=== PATIENT | male | born 1955 | race Caucasian/White ===

== ENCOUNTER 2021-05-21 16:05 | Emergency (ER) | payer OTHER, MEDICARE ==
[~2021-05-21] VITALS: Ht 175.3 cm; Wt 90.7 kg
[2021-05-21] MEDS ORDERED: KETOROLAC TROMETHAMINE 30 MG/ML VIAL IV STA (16:21)
[2021-05-21] MEDS ORDERED: SODIUM CHLORIDE 0.9% 1000ML 1,000 ML IV STA (16:29)
[2021-05-21] MEDS ORDERED: KETOROLAC TROMETHAMINE 30 MG/ML VIAL IV ONE (16:30)
[2021-05-21 16:41] LABS: BASOPHILS % 0.7 % (0.0-1.0); EOSINOPHILS # (AUTO) 0.1 (0.0-0.4); HEMATOCRIT 43.3 % (38.2-49.6); HEMOGLOBIN 14.8 g/dL (14.0-18.0); LYMPHOCYTES % 33.8 % (18.0-39.1); MEAN CORPUSCULAR HEMOGLOBIN 31.1 pg (28-32); MEAN CORPUSCULAR HGB CONC 34.2 g/dL (31-35); MONOCYTES # (AUTO) 0.6 (0.2-0.8); MONOCYTES % 9.9 % (4.4-11.3); NEUTROPHILS # (AUTO) 3.2 (2.1-6.9); NEUTROPHILS % 53.3 % (38.7-80.0); PLATELET COUNT 198 x10e3/uL (140-360); RED BLOOD COUNT 4.76 x10e6/uL (4.3-5.7); RED CELL DISTRIBUTION WIDTH 12.7 % (11.7-14.4)
[2021-05-21 16:46] LABS: CLARITY,URINE CLEAR (CLEAR); COLOR,URINE YELLOW (YELLOW); KETONES,URINE TRACE (NEGATIVE); LEUKOCYTE ESTERASE ,URINE NEGATIVE (NEGATIVE); NITRITE,URINE NEGATIVE (NEGATIVE); PROTEIN,URINE DIPSTICK NEGATIVE (NEGATIVE); URINE UROBILINOGEN 1 mg/dL (0.2 - 1)
[2021-05-21 16:55] LABS: ALBUMIN/GLOBULIN RATIO 1.4 (0.8-2.0); ANION GAP 13.5 mmol/L (8-16); CALCIUM 9.1 mg/dL (8.4-10.2); CREATININE, SERUM 0.88 mg/dL (0.72-1.25); POTASSIUM 3.5 mmol/L (3.5-5.1)
[2021-05-21 16:58] LABS: AMORPHOUS SEDIMENT,URINE MODERATE (FEW); BACTERIA,URINE FEW /HPF; EPITHELIAL CELLS,URINE RARE /LPF; MUCUS,URINE MODERATE (RARE); RBC,URINE 0-5 /HPF (0-5); WBC,URINE (MAN) 0-5 /HPF (0-5)
[2021-05-21] MEDS ORDERED: ONDANSETRON ODT8 MG PO (18:15)
[2021-05-21] MEDS ORDERED: FLOMAX0.4 MG PO (18:15)
== END 2021-05-21 18:47 | disposition home or self-care (01) ==
LOC: ER 16:38
DX: N20.0 Calculus of kidney (principal); N40.0 Benign prostatic hyperplasia without lower urinary tract symptoms; I10 Essential (primary) hypertension; Z88.6 Allergy status to analgesic agent; Z88.2 Allergy status to sulfonamides
CPT/HCPCS: 36415; 74176; 80053; 81001; 85025; 99284; J1885; J7030

== ENCOUNTER 2023-02-28 11:35 | Observation (INO) | payer MEDICARE, OTHER ==
[~2023-02-28] VITALS: Ht 175.3 cm; Wt 90.7 kg
[~2023-02-28 11:35] MED LIST: FLOMAX0.4 MG PO; ONDANSETRON ODT8 MG PO
[2023-02-28] MEDS ORDERED: SODIUM CHLORIDE 0.9% 1000ML 1,000 ML IV STA (11:58)
[2023-02-28 12:08] LABS: BASOPHILS % 0.7 % (0.0-1.0); EOSINOPHILS # (AUTO) 0.1 (0.0-0.4); EOSINOPHILS % 1.9 % (0.0-6.0); HEMOGLOBIN 15.1 g/dL (14.0-18.0); LYMPHOCYTES # (AUTO) 1.6 (1.0-3.2); LYMPHOCYTES % 30.3 % (18.0-39.1); MEAN CORPUSCULAR HEMOGLOBIN 31.9 pg (28-32); MEAN CORPUSCULAR HGB CONC 35.1 g/dL (31-35); MEAN CORPUSCULAR VOLUME 90.9 fL (81-99); MONOCYTES # (AUTO) 0.6 (0.2-0.8); MONOCYTES % 10.5 % (4.4-11.3); NEUTROPHILS % 56.4 % (38.7-80.0); PLATELET COUNT 182 x10e3/uL (140-360); RED BLOOD COUNT 4.73 x10e6/uL (4.3-5.7); RED CELL DISTRIBUTION WIDTH 12.5 % (11.7-14.4)
[2023-02-28 12:13] LABS: INR 0.92; PROTHROMBIN TIME 12.9 seconds (11.9-14.5)
[2023-02-28 12:23] LABS: ALANINE AMINOTRANSFERASE 18 IU/L (0-55); ALBUMIN 4.1 g/dL (3.5-5.0); ALBUMIN/GLOBULIN RATIO 1.3 (0.8-2.0); ALKALINE PHOSPHATASE 92 IU/L (40-150); ANION GAP 12.6 mmol/L (8-16); BLOOD UREA NITROGEN 11 mg/dL (7-26); BUN/CREATININE RATIO 12 (6-25); CALCIUM 9.4 mg/dL (8.4-10.2); CARBON DIOXIDE 28 mmol/L (22-29); CHLORIDE 104 mmol/L (98-107); CREATINE KINASE 64 IU/L (30-200); CREATININE, SERUM 0.93 mg/dL (0.72-1.25); GLUCOSE 100 mg/dL (74-118); MAGNESIUM 2.1 MG/DL (1.3-2.1); POTASSIUM 3.6 mmol/L (3.5-5.1); SODIUM 141 mmol/L (136-145)
[2023-02-28 12:44] LABS: THYROID STIMULATING HORMONE 0.899 uIU/mL (0.350-4.940)
[2023-02-28] MEDS ORDERED: POLYETHYLENE GLYCOL 3350 17 GM PACK PO PRN (16:45)
[2023-02-28] MEDS ORDERED: ONDANSETRON HCL INJ 2MG/ML 2ML 2 MG/ML VIAL IV PRN (16:45)
[2023-02-28 17:00] VITALS: BP 169/97; PULSE 80; RESP 18; TEMP 97.8; O2SAT 100
[2023-02-28] MEDS: DOCUSATE SODIUM 100 MG CAP PO SCH (17:00)
[2023-02-28] MEDS ORDERED: LISINOPRIL10 MG PO (17:41)
[2023-02-28] MEDS ORDERED: NEXIUM40 MG PO (17:41)
[2023-02-28] MEDS: HYDRALAZINE HCL 20 MG/ML VIAL IV PRN (17:53)
[2023-02-28] MEDS ORDERED: FLOMAX0.4 MG PO (18:22)
[2023-02-28] MEDS: ACETAMINOPHEN 325 MG TAB PO PRN (18:31)
[2023-02-28 20:00] VITALS: BP 131/88; PULSE 100; RESP 20; TEMP 98.2; O2SAT 100
[2023-02-28 20:10] VITALS: PULSE 104; RESP 18; O2SAT 100
[2023-02-28 21:00] VITALS: BP 131/88; PULSE 104; RESP 18; TEMP 98.2; O2SAT 100
[2023-02-28 22:30] LABS: CREATINE KINASE 73 IU/L (30-200)
[2023-03-01] VITALS (9 sets, daily range): BP systolic 140–152; BP diastolic 79–102; PULSE 81–101; RESP 17–20; TEMP 97.8–98.9; O2SAT 98–100
[2023-03-01] MEDS: ACETAMINOPHEN 325 MG TAB PO PRN ×2 (01:33→11:26)
[2023-03-01 05:45] LABS: BASOPHILS % 0.5 % (0.0-1.0); EOSINOPHILS % 0.5 % (0.0-6.0); HEMATOCRIT 43.8 % (38.2-49.6); HEMOGLOBIN 14.8 g/dL (14.0-18.0); LYMPHOCYTES # (AUTO) 1.6 (1.0-3.2); LYMPHOCYTES % 21.1 % (18.0-39.1); MEAN CORPUSCULAR HEMOGLOBIN 31.7 pg (28-32); MEAN CORPUSCULAR HGB CONC 33.8 g/dL (31-35); MEAN CORPUSCULAR VOLUME 93.8 fL (81-99); MONOCYTES # (AUTO) 0.7 (0.2-0.8); MONOCYTES % 8.8 % (4.4-11.3); NEUTROPHILS # (AUTO) 5.3 (2.1-6.9); NEUTROPHILS % 68.8 % (38.7-80.0); PLATELET COUNT 194 x10e3/uL (140-360); RED BLOOD COUNT 4.67 x10e6/uL (4.3-5.7); RED CELL DISTRIBUTION WIDTH 12.7 % (11.7-14.4)
[2023-03-01 06:16] LABS: ALBUMIN 3.6 g/dL (3.5-5.0); ALBUMIN/GLOBULIN RATIO 1.2 (0.8-2.0); ANION GAP 12.1 mmol/L (8-16); CALCIUM 9.3 mg/dL (8.4-10.2); CHOL/HDL RATIO 2.9 (3.9-4.7); CREATININE, SERUM 0.86 mg/dL (0.72-1.25); POTASSIUM 4.1 mmol/L (3.5-5.1)
[2023-03-01 06:46] LABS: CREATINE KINASE 63 IU/L (30-200)
[2023-03-01] MEDS ORDERED: FAMOTIDINE 20 MG TAB PO SCH (07:30)
[2023-03-01] MEDS: HYDRALAZINE HCL 20 MG/ML VIAL IV PRN (08:50)
[2023-03-01] MEDS: DOCUSATE SODIUM 100 MG CAP PO SCH ×2 (08:50→17:20)
[2023-03-01] MEDS ORDERED: ASPIRIN 81 MG ENTERIC COATED PO SCH (09:00)
[2023-03-01] MEDS ORDERED: LISINOPRIL 20 MG TAB PO ONE (11:30)
[2023-03-01] MEDS ORDERED: ONDANSETRON HCL 4 MG ORAL DISINTEGRATING TAB PO PRN (11:30)
[2023-03-01] MEDS ORDERED: TAMSULOSIN HCL 0.4 MG CAP PO ONE (11:30)
[2023-03-01 14:42] LABS: CREATINE KINASE 63 IU/L (30-200)
[2023-03-01] MEDS ORDERED: PANTOPRAZOLE SOD 40 MG TABEC PO SCH (17:00)
[2023-03-02] MEDS ORDERED: TAMSULOSIN HCL 0.4 MG CAP PO SCH (09:00)
[2023-03-02] MEDS ORDERED: LISINOPRIL 20 MG TAB PO SCH (09:00)
== END 2023-03-01 18:25 | disposition home or self-care (01) ==
LOC: ER 12:00 → ERHOLD 15:08 → MED/SURG3 16:20
PROVIDERS: ADMIT Internal Medicine; ATTEND Internal Medicine
DX: I16.0 Hypertensive urgency (principal); I10 Essential (primary) hypertension; R55 Syncope and collapse; H54.7 Unspecified visual loss; R51.9 Headache, unspecified; K21.9 Gastro-esophageal reflux disease without esophagitis; Z79.899 Other long term (current) drug therapy
CPT/HCPCS: 36415 ×2; 70496; 70498; 70551; 71045; 80053 ×2; 80061; 82550 ×2; 83735; 83880; 84100; 84443; 84484 ×2; 85025 ×2; 85610; 85730; 93005; 93880; 94799 ×2; 99284; G0378 ×2; J0360 ×2; J2405; S0164; U0002